=== PATIENT | male | born 1960 | race Caucasian/White ===

== ENCOUNTER → 2024-01-26 08:02 | Outpatient (REF) | payer BC, SELFPAY | LOC: WOUND 08:02 | PROVIDERS: ATTENDING PHYSICIAN Surgery | DX: S21.202A Unspecified open wound of left back wall of thorax without penetration into thoracic cavity, initial encounter (principal); L59.8 Other specified disorders of the skin and subcutaneous tissue related to radiation; Y84.2 Radiological procedure and radiotherapy as the cause of abnormal reaction of the patient, or of later complication, without mention of misadventure at the time of the procedure; C49.9 Malignant neoplasm of connective and soft tissue, unspecified; E78.5 Hyperlipidemia, unspecified; I10 Essential (primary) hypertension | CPT/HCPCS: 99204 ==

== ENCOUNTER → 2024-03-29 08:52 | Outpatient (REF) | payer BC, SELFPAY | LOC: WOUND 08:52 | PROVIDERS: ATTENDING PHYSICIAN Surgery | DX: S21.202A Unspecified open wound of left back wall of thorax without penetration into thoracic cavity, initial encounter (principal); L59.8 Other specified disorders of the skin and subcutaneous tissue related to radiation; Y84.2 Radiological procedure and radiotherapy as the cause of abnormal reaction of the patient, or of later complication, without mention of misadventure at the time of the procedure; C49.9 Malignant neoplasm of connective and soft tissue, unspecified; E78.5 Hyperlipidemia, unspecified; I10 Essential (primary) hypertension | CPT/HCPCS: 99204 ==